=== PATIENT | female | born 1940 | race American Indian/Alaskan Native ===

== ENCOUNTER 2019-04-13 17:48 | Emergency (ER) | payer MEDICARE ==
[2019-04-13 17:55] VITALS: BP 190/90
--- NOTE | 2019-04-13 17:58 | Event Note ---
ED Screening Note Date of service: 04/13/19 Time: 17:54 ED Screening Note: This is a 79 y.o. F. that presents to the ER with low back pain since yesterday. Patient was discharged from [facility] yesterday morning with Valium. Had labs and CT yesterday. This initial assessment/diagnostic orders/clinical plan/treatment(s) is/are subject to change based on patients health status, clinical progression and re- assessment by fellow clinical providers in the ED. Further treatment and workup at subsequent clinical providers discretion. Patient/guardian urged not to elope from the ED as their condition may be serious if not clinically assessed and managed. Initial orders include: Labs
[2019-04-13 18:29] LABS: Basophils # (Auto) 0.1 K/mm3 (0.0-0.1); Basophils % (Auto) 1.4 % (0.0-1.8); Eosinophils # (Auto) 0.2 K/mm3 (0.0-0.4); Eosinophils % (Auto) 2.1 % (0.0-4.3); Hematocrit 32.6 % (30.3-42.9); Hemoglobin 10.2 gm/dl (10.1-14.3); Lymphocytes # (Auto) 2.7 K/mm3 (1.2-5.4); Lymphocytes % (Auto) 34.8 % (13.4-35.0); Mean Corpuscular HGB Conc 31 % (30-34); Mean Corpuscular Volume 73 fl (79-97); Monocytes # (Auto) 0.7 K/mm3 (0.0-0.8); Monocytes % (Auto) 9.4 % (0.0-7.3); Platelet Count 307 K/mm3 (140-440); Red Blood Count 4.46 M/mm3 (3.65-5.03)
[2019-04-13 18:34] LABS: Red Cell Distribution Width 20.8 % (13.2-15.2)
[2019-04-13] MEDS ORDERED: TORADOL IM ONE (18:34)
[2019-04-13] MEDS ORDERED: ZANAFLEX PO ONE (18:35)
[2019-04-13 18:52] LABS: Alanine Aminotransferase 11 units/L (7-56); Albumin 4.1 g/dL (3.9-5); BUN/Creatinine Ratio 25; Blood Urea Nitrogen 20 mg/dL (7-17); Calcium 9.3 mg/dL (8.4-10.2); Hemolysis Index 4
--- NOTE | 2019-04-13 18:53 | Emergency Department Report ---
ED Back Pain/Injury HPI - General Chief Complaint: Back Pain/Injury Stated Complaint: BACK PAIN Time Seen by Provider: 04/13/19 17:54 Source: patient Limitations: No Limitations - History of Present Illness Initial Comments: This is a 79 y.o. F. that presents to the ER with low back pain since yesterday. She reports that she suffers from this several times a year. Patient was discharged from [facility] yesterday morning with Valium. Had labs and CT yesterday. Patient reports that she is still having back spasms. She denies any recent trauma. Complaint: back pain Onset/Timin -: week(s) Similar Symptoms Previously: Yes Radiation: none Severity scale (0 -10): 10 Quality: other Consistency: constant Improves With: none Worsens With: none Associated Symptoms: denies other symptoms - Related Data Previous Rx's Medication Instructions Recorded Last Taken Type tiZANidine [Zanaflex 4mg TAB] 4 mg PO TID PRN #15 tablet 04/13/19 Unknown Rx Allergies Allergy/AdvReac Type Severity Reaction Status Date / Time No Known Allergies Allergy Unverified 04/13/19 17:48 ED Review of Systems ROS: Stated complaint: BACK PAIN Other details as noted in HPI Comment: All other systems reviewed and negative ED Past Medical Hx - Past Medical History Previous Medical History?: Yes Hx Hypertension: Yes Additional medical history: RLS - Surgical History Past Surgical History?: Yes Hx Cholecystectomy: Yes Hx Breast Surgery: Yes (Right Breast Bx) Additional Surgical History: Hysterectomy - Social History Smoking Status: Never Smoker Substance Use Type: Alcohol - Medications Home Medications: Home Medications Medication Instructions Recorded Confirmed Last Taken Type tiZANidine [Zanaflex 4mg TAB] 4 mg PO TID PRN #15 tablet 04/13/19 Unknown Rx ED Physical Exam - General Limitations: No Limitations General appearance: alert, in no apparent distress - Head Head exam: Present: atraumatic, normocephalic - Eye Eye exam: Present: normal appearance - ENT ENT exam: Present: mucous membranes moist - Extremities Exam Extremities exam: Present: normal inspection - Back Exam Back exam: Present: full ROM, muscle spasm, paraspinal tenderness - Neurological Exam Neurological exam: Present: alert, oriented X3 - Psychiatric Psychiatric exam: Present: normal affect, normal mood - Skin Skin exam: Present: warm, dry, intact, normal color. Absent: rash ED Course Vital Signs 04/13/19 17:54 Temperature 97.6 F Pulse Rate 72 Respiratory 16 Rate Blood Pressure 190/90 O2 Sat by Pulse 96 Oximetry - Reevaluation(s) Reevaluation #1: 04/13/19 19:24 She reports that her back spasm has improved. Patient reports that she needs to leave and cannot wait for her urinalysis ED Medical Decision Making - Lab Data Result diagrams: 04/13/19 18:02 04/13/19 18:02 - Medical Decision Making This is a 79 y.o. F. that presents to the ER with low back pain since yesterday. She reports that she suffers from this several times a year. Patient was discharged from [facility] yesterday morning with [facility]. Had labs and CT yesterday. Patient reports that she is still having back spasms. She denies any recent trauma. Patient will be given Toradol injection and Zanaflex 4 mg. patient reports that she cannot stay to have her urinalysis completed. Patient be discharged home on Zanaflex. Critical care attestation.: If time is entered above; I have spent that time in minutes in the direct care of this critically ill patient, excluding procedure time. ED Disposition Clinical Impression: Spasm of back muscles Disposition: [id number] TO HOME OR SELFCARE Is pt being admited?: No Does the pt Need Aspirin: No Condition: Stable Instructions: Muscle Spasm (ED) Additional Instructions: Please take muscle relaxants as prescribed and as needed. Please increase her water intake. Follow up with your primary care provider if his symptoms persist or gets worse. Prescriptions: tiZANidine [Zanaflex 4mg TAB] 4 mg PO TID PRN #15 tablet PRN Reason: Muscle Spasm
[2019-04-13 19:40] LABS: Bilirubin,Urine NEG (Negative); Blood,Urine MOD (Negative); Color,Urine Yellow (Yellow); Mucus,Urine FEW /HPF; Protein,Urine <15 mg/dL mg/dL (Negative); Urobilinogen,Urine < 2.0 mg/dL (<2.0)
== END 2019-04-13 19:35 | disposition home or self-care (01) ==
LOC: ED 17:48
DX: M62.830 Muscle spasm of back (principal); I10 Essential (primary) hypertension; Z90.49 Acquired absence of other specified parts of digestive tract; Z98.890 Other specified postprocedural states; Z90.710 Acquired absence of both cervix and uterus; Z79.899 Other long term (current) drug therapy
CPT/HCPCS: 36415; 80053; 81001; 85025; 96372; 99283; J1885